=== PATIENT | female | born 1945 | race Caucasian/White ===

== ENCOUNTER 2022-11-26 19:21 | Emergency (ER) | payer OTHER ==
[~2022-11-26] VITALS: Ht 160 cm; Wt 61.2 kg
[2022-11-26 19:30] VITALS: BP_SYST 151
[2022-11-26] MEDS ORDERED: NACL 0.9% 1,000 ML IV ONE (19:45)
[2022-11-26 20:15] LABS: BASOPHILS % (AUTO) 0.4 % (0.0-2.0); EOSINOPHILS % (AUTO) 0.5 % (0.0-4.0); HEMATOCRIT 31.4 % (36-48); HEMOGLOBIN 10.6 g/dL (12.0-16.0); LYMPHOCYTES % (AUTO) 21.8 % (20.5-51.5); MEAN CORPUSCULAR HEMOGLOBIN 31 pg (27-31); MEAN CORPUSCULAR HGB CONC 34 % (32-36); MEAN CORPUSCULAR VOLUME 93 fL (79.0-98.0); MONOCYTES # (AUTO) 0.1 K/uL (0.0-1.0); MONOCYTES % (AUTO) 3.1 % (1.7-9.3); NEUTROPHILS # (AUTO) 3.4 K/uL (1.8-7.7); NEUTROPHILS % (AUTO) 74.2 % (40.0-70.0); PLATELET COUNT (AUTO) 234 K/uL (130-430); RED BLOOD CELL COUNT(AUTO) 3.39 MIL/uL (4.2-6.2); RED CELL DISTRIBUTION WIDTH 15.6 % (9.0-15.0); WHITE BLOOD COUNT (AUTO) 4.6 K/uL (4.8-10.8)
[2022-11-26 20:39] LABS: ANION GAP 3 (5-15); CALCIUM 8.8 mg/dL (8.4-11.0); CHLORIDE 105 mmol/L (98-107); CREATININE 0.83 mg/dL (0.55-1.30); GLUCOSE 112 mg/dL (70-99); UREA NITROGEN, BLOOD 12 mg/dL (8-21)
[2022-11-26 20:44] LABS: ALANINE AMINOTRANSFERASE 19 U/L (12-78); ASPARTATE AMINOTRANSFERASE 15 U/L (10-37); TOTAL BILIRUBIN 0.3 mg/dL (0.0-1.0)
--- NOTE | 2022-11-26 21:04 | NUR ---
Note sean in [facility] - 11/26/22 at 2245 by [email or web address] Placed in room 01 . Placed on residential monitor, blood pressure machine and pulse oximeter. To gown for exam. Side rails up. Report given to BRITTANI GUADARRAMA
--- NOTE | 2022-11-26 22:45 | NUR ---
Patient to ER bed 08 to gown for evaluation. Side rails up. Report given to BRITTANI BENEDICT
[2022-11-26 23:33] LABS: BILIRUBIN,URINE NEGATIVE (NEGATIVE); BLOOD, URINE NEGATIVE (NEGATIVE); CLARITY/URINE CLEAR (CLEAR); COLOR,URINE YELLOW (YELLOW); GLUCOSE,URINE NEGATIVE (NEGATIVE); KETONES,URINE NEGATIVE (NEGATIVE); LEUKOCYTE ESTERASE ,URINE NEGATIVE (NEGATIVE); NITRITE, URINE NEGATIVE (NEGATIVE); PH,URINE 7.5 (5.0-8.0); PROTEIN URINE NEGATIVE (NEGATIVE); UROBILINOGEN,URINE 0.2 (0.2-1.0)
[2022-11-27 00:43] VITALS: BP_SYST 128
--- NOTE | 2022-11-27 01:09 | NUR ---
Patient given written and verbal discharge instructions and verbalizes understanding. ER MD discussed with patient the results and treatment provided. Patient in stable condition. ID arm band removed. Patient educated on pain management and to follow up with PMD. Pain Scale [0]. Opportunity for questions provided and answered. Medication side effect fact sheet provided.
== END 2022-11-27 00:43 | disposition home or self-care (01) ==
LOC: SED 19:21
DX: Z00.00 Encounter for general adult medical examination without abnormal findings (principal); R53.1 Weakness; Z79.899 Other long term (current) drug therapy; Z20.822 Contact with and (suspected) exposure to COVID-19
CPT/HCPCS: 36415; 71045; 80053; 81003; 83605; 84443; 85025; 87040; 99284